=== PATIENT | male | born 1965 | race Caucasian/White ===

== ENCOUNTER 2019-11-22 23:44 | Outpatient (CLI) | payer MEDICAID | END 2019-11-22 23:45 | disposition critical access hospital (66) | LOC: EMS 23:44 | PROVIDERS: ATTEND Surgery | DX: R07.9 Chest pain, unspecified (principal); Z72.89 Other problems related to lifestyle; F41.9 Anxiety disorder, unspecified | CPT/HCPCS: A0425; A0429; A0999 ==

== ENCOUNTER 2019-11-23 00:01 | Emergency (ER) | payer MEDICAID ==
--- NOTE | 2019-11-23 00:18 | ED Physician Documentation ---
History of Present Illness - Stated complaint Stated Complaint: ETOH - Chief complaint Chief Complaint: General - Additonal information Additional information: This is a 53-year-old male with a history of hepatitis which is been treated, alcoholism, and varices, who presents with lightheadedness. Patient states he was recently started on naproxen and he worries this may be interacting his other medications and causing him to feel bit lightheaded. He continues to drink and states that he had 3 large 40 ounce beers today, and some shots as well. He vomited yesterday and states there was a small streak of red in the vomit, he denies any blood or dark stool. He is said to have some varices banded with a vice president payer in [facility]. No shortness of breath, no chest pain. Review of Systems Constitutional: denies: Fever Nose: denies: Rhinorrhea / runny nose Cardiac: denies: Chest pain / pressure Respiratory: denies: Dyspnea GI: denies: Abdominal Pain Neurologic: reports: Generalized weakness Immunocompromised: denies: Immunocompromised PD PAST MEDICAL HISTORY - Present Medications Home Medications: Ambulatory Orders Medication Instructions Recorded Confirmed Buspirone HCl 2 tab BID 11/23/19 11/23/19 Clonidine HCl [Clonidine HCl ER] 1 tab TID PRN 11/23/19 11/23/19 Gabapentin 1 tab TID 11/23/19 11/23/19 Ibuprofen 1 tab TID 11/23/19 11/23/19 Naltrexone HCl 1.5 tab 11/23/19 Ondansetron [Ondansetron Odt] 1 tab BID PRN 11/23/19 11/23/19 Promethazine HCl 1 tab PRN 11/23/19 Propranolol HCl 1 tab BID 11/23/19 11/23/19 - Allergies Allergies/Adverse Reactions: Allergies Allergy/AdvReac Type Severity Reaction Status Date / Time No Known Drug Allergies Allergy Verified 11/23/19 00:10 PD ED PE NORMAL - Vitals Vital signs reviewed: Yes - General General: Other (Sitting up, talking, slurred speech, no acute distress.) - HEENT HEENT: Atraumatic, PERRL - Neck Neck: Supple, no meningeal sign - Cardiac Cardiac: RRR - Respiratory Respiratory: No respiratory distress, Clear bilaterally - Abdomen Abdomen: Soft, Non tender, Non distended - Derm Derm: Warm and dry - Extremities Extremities: No deformity - 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 No ST segment elevation or depression. 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.) - Labs Labs: Laboratory Tests 11/23/19 11/23/19 11/23/19 00:30 00:30 00:30 WBC 6.1 RBC 4.32 L Hgb 14.4 Hct 42.1 MCV 97.5 H MCH 33.3 H MCHC 34.2 RDW 14.6 Plt Count 87 L MPV 10.2 Neut # (Auto) 2.5 Lymph # (Auto) 2.6 [place] # (Auto) 0.7 Eos # (Auto) 0.1 Baso # (Auto) 0.1 Absolute Nucleated RBC 0.00 Nucleated RBC % 0.0 PT 13.8 H INR 1.2 Sodium 138 Potassium 3.7 Chloride 103 Carbon Dioxide 23 Anion Gap 12.0 BUN 6 Creatinine 0.8 Estimated GFR (MDRD) 101 Glucose 107 H Calcium 8.6 Total Bilirubin 1.0 AST 95 H ALT 41 Alkaline Phosphatase 119 Troponin I High Sens B-Natriuretic Peptide Total Protein 8.8 H Albumin 3.6 Globulin 5.2 H Albumin/Globulin Ratio 0.7 L Lipase 47 Ethyl Alcohol 381.3 11/23/19 11/23/19 00:30 00:30 WBC RBC Hgb Hct MCV MCH MCHC RDW Plt Count MPV Neut # (Auto) Lymph # (Auto) [place] # (Auto) Eos # (Auto) Baso # (Auto) Absolute Nucleated RBC Nucleated RBC % PT INR Sodium Potassium Chloride Carbon Dioxide Anion Gap BUN Creatinine Estimated GFR (MDRD) Glucose Calcium Total Bilirubin AST ALT Alkaline Phosphatase Troponin I High Sens 3.8 B-Natriuretic Peptide 61 Total Protein Albumin Globulin Albumin/Globulin Ratio Lipase Ethyl Alcohol - Rads (name of study) Ct head WO Radiology: Other (No acute intracranial abnormality. Age-indeterminate nasal fracture.) CXR Radiology: Other (Normal single view chest x-ray) PD MEDICAL DECISION MAKING - ED course Complexity details: considered differential (Medication side effect, electrolyte abnormality, alcohol intoxication, anemia, orthostasis, dehydration, Intracranial bleed) ED course: On arrival patient is nontoxic-appearing, he does slight alcohol on breath. Labs are obtained, his hemoglobin is normal, as is his INR. He endorsed 1 small tinge of blood in his vomit yesterday but has had none since then, and given his normal hemoglobin I do not see signs of any significant GI bleed. His electrolytes are unremarkable he has a mild AST elevation consistent with his alcohol use. His alcohol level is 381. CT scan of the head is unremarkable, and his chest x-ray is also unremarkable. No signs of acute ischemia or dysrhythmia on his EKG or troponin. Patient states he feels somewhat lightheaded, this may be from his alcohol intoxication, reviewing his labs he is also on promethazine and gabapentin, I reviewed that these medications can be sedating and should not be combined together or with alcohol. I also discussed that he should review his medications with his primary care provider. I also recommended he stop drinking alcohol, he plans to seek inpatient treatment for this. He verbalizes understanding and his parents at bedside agree as well. Patient has a stable narrow-base gait without ataxia on repeat evaluation and testing, he is feeling okay at this time, And his parents feel comfortable taking him home and Observing him.Patient was discharged home in their care. Departure - Departure Disposition: 01 Home, Self Care Clinical Impression: Dizziness Alcohol intoxication Qualifiers: Complication of substance-induced condition: with unspecified complication Qualified Code(s): F10.929 - Alcohol use, unspecified with intoxication, unspecified Condition: Good Follow-Up: Provider,Other [Primary Care Provider] - Comments: Your labs today showed an elevated alcohol level as well as some mild inflammation of your liver, otherwise do not see an obvious cause of your symptoms. Your scan does not show any bleed or other large abnormality. I am concerned that the alcohol combined with some of your medications may be causing your symptoms. Gabapentin can be sedating and when combined other medication such as alcohol can cause other side effects such as the ones you are having. Please stop drinking alcohol, it is causing you great harm and is no doubt contributing to the symptoms you are having. You are at high risk for falls bleeding and other problems due to the alcohol use. If you having new or worsening symptoms such as weakness, numbness, passing out, return to the emergency department Discharge Date/Time: 11/23/19 02:30
[2019-11-23 00:37] LABS: BASOPHILS # (AUTO) 0.1 10^3/uL (0.0-0.1); BASOPHILS % (AUTO) 1.5 %; EOSINOPHILS # (AUTO) 0.1 10^3/uL (0.0-0.7); EOSINOPHILS % (AUTO) 1.8 %; HGB - HEMOGLOBIN 14.4 g/dL (14.0-18.0); LYMPHOCYTES # (AUTO) 2.6 10^3/uL (1.5-3.5); LYMPHOCYTES % (AUTO) 43.5 %; MEAN CORPUSCULAR HEMOGLOBIN 33.3 pg (27.0-31.0); MEAN CORPUSCULAR HGB CONC 34.2 g/dL (32.0-36.0); MEAN CORPUSCULAR VOLUME 97.5 fL (80.0-94.0); MEAN PLATELET VOLUME 10.2 fL (7.4-11.4); MONOCYTES # (AUTO) 0.7 10^3/uL (0.0-1.0); MONOCYTES % (AUTO) 11.5 %; NEUTROPHILS # (AUTO) 2.5 10^3/uL (1.5-6.6); NEUTROPHILS % (AUTO) 41.5 %; PLT - PLATELET COUNT 87 10^3/uL (130-450); RED BLOOD COUNT 4.32 10^6/uL (4.70-6.10); RED CELL DISTRIBUTION WIDTH 14.6 % (12.0-15.0); WHITE BLOOD COUNT 6.1 x10^3/uL (4.8-10.8)
[2019-11-23 00:41] LABS: INR 1.2 (0.8-1.2); PT - PROTHROMBIN TIME 13.8 secs (9.9-12.6)
[2019-11-23 00:50] LABS: ALBUMIN 3.6 g/dL (3.2-5.5); ALBUMIN/GLOBULIN RATIO 0.7 (1.0-2.2); CALCIUM 8.6 mg/dL (8.5-10.3); CREATININE 0.8 mg/dL (0.6-1.2); TOTAL PROTEIN 8.8 g/dL (6.7-8.2)
--- NOTE | 2019-11-23 01:13 | XRAY Report ---
Reason: Lightheaded Procedure Date: 11/23/2019 Accession Number: [id number] / [id number] Procedure: XR - Chest 1 View X-Ray CPT Code: 99231 Final Report FULL RESULT: EXAM: CHEST RADIOGRAPHY EXAM DATE: 11/23/2019 01:03 AM. CLINICAL HISTORY: Lightheaded. COMPARISON: None. TECHNIQUE: 1 view. FINDINGS: Lungs/Pleura: No focal opacities evident. No pleural effusion. No pneumothorax. Mediastinum: Within exam limitations, the cardiomediastinal contour is normal. Other: None. IMPRESSION: Normal single view chest. RADIA
--- NOTE | 2019-11-23 02:18 | CT Report ---
Reason: ETOH, possible fall/head trauma Procedure Date: 11/23/2019 Accession Number: [id number] / [id number] Procedure: CT - HEAD WO CPT Code: Final Report FULL RESULT: EXAM: CT HEAD EXAM DATE: 11/23/2019 02:01 AM. CLINICAL HISTORY: ETOH, possible fall/head trauma. COMPARISON: None. TECHNIQUE: Multiaxial CT images were obtained from the foramen magnum to the vertex. Reformats: Sagittal and coronal. IV contrast: None. In accordance with CT protocol optimization, one or more of the following dose reduction techniques were utilized for this exam: automated exposure control, adjustment of mA and/or KV based on patient size, or use of iterative reconstructive technique. FINDINGS: Parenchyma: No intraparenchymal hemorrhage. No evidence of mass, midline shift, or CT findings of infarction. Cortez-white differentiation is distinct. Mild age-related volume loss. Extraaxial Spaces: No subdural or epidural collections identified. Ventricles: Normal in size and position. Sinuses and Orbits: Opacity in visualized left maxillary sinus. Remainder of visualized paranasal sinuses are clear. Mastoid air cells are clear. No acute findings of visualized orbits. Bones: No evidence of skull fracture or calvarial defect. Left nasal bone fracture, incompletely imaged. Other: None. IMPRESSION: 1. No intracranial hemorrhage, skull fracture, or other acute intracranial abnormality. 2. Nasal bone fracture, indeterminate age. Correlate clinically. 3. Left maxillary sinus opacification. RADIA
[2019-11-23 02:32] VITALS: BP 108/77
== END 2019-11-23 02:30 | disposition home or self-care (01) ==
LOC: ED 00:01
DX: R42 Dizziness and giddiness (principal); F10.229 Alcohol dependence with intoxication, unspecified; Y90.8 Blood alcohol level of 240 mg/100 ml or more; K75.9 Inflammatory liver disease, unspecified; I44.0 Atrioventricular block, first degree
CPT/HCPCS: 36415; 70450; 71045; 80053; 80320; 83690; 83880; 84484; 85025; 85610; 93005; 99283; 99284

== ENCOUNTER 2020-12-21 18:39 | Outpatient (CLI) | payer MEDICAID, MEDICARE | END 2020-12-21 18:40 | disposition short-term general hospital (02) | LOC: EMS 18:39 | DX: M79.605 Pain in left leg (principal); M54.2 Cervicalgia | CPT/HCPCS: A0425; A0429 ==

== ENCOUNTER 2021-12-24 14:58 | Outpatient (CLI) | payer MEDICARE | END 2021-12-24 14:59 | disposition short-term general hospital (02) | LOC: EMS 14:58 | DX: R06.00 Dyspnea, unspecified (principal); R47.81 Slurred speech; F17.200 Nicotine dependence, unspecified, uncomplicated; I48.91 Unspecified atrial fibrillation | CPT/HCPCS: A0425; A0427 ==